=== PATIENT | female | born 1945 | race Caucasian/White ===

== ENCOUNTER → 2016-10-17 | Outpatient (CLI) | payer MEDICARE, OTHER ==
[~2016-10-17] MED LIST: ACLI400A2 IH; ALBU8.5H IH; ALEN70SO2 PO; CALC-15 PO; CARV3 PO; DILT120T PO; FLUT1DIS5 IH; FOLI1 PO; FURO40 PO; LEVO75TA4 PO; LOSA50TA37 PO; MVITFE PO; PANT20TA12 PO; SPIR25 PO; SULF1TAB42 PO; SYMB8060 IH; VICOT PO; WARF5TAB6 PO; [UNRECOGNIZED DRUG - CODE] OP
[2016-10-17 12:08] VITALS: BP 125/80
== END | disposition home or self-care (01) ==
LOC: HBOWC 11:36
PROVIDERS: ATTEND Emergency Medicine
DX: I87.2 Venous insufficiency (chronic) (peripheral) (principal); L97.321 Non-pressure chronic ulcer of left ankle limited to breakdown of skin; L89.892 Pressure ulcer of other site, stage 2

== ENCOUNTER → 2016-10-30 | Outpatient (CLI) | payer MEDICARE, OTHER ==
[~2016-10-30] MED LIST changes: +CLOTRIMAZOLE 1% 15 GM CREAM TP ONE; +TRIAMCINOLONE 0.1% 15 GM CREAM TP ONE
[2016-10-30 11:00] VITALS: BP 109/55
== END | disposition home or self-care (01) ==
LOC: HBOWC 10:34
PROVIDERS: ATTEND Emergency Medicine
DX: I87.2 Venous insufficiency (chronic) (peripheral) (principal); L97.321 Non-pressure chronic ulcer of left ankle limited to breakdown of skin; L89.892 Pressure ulcer of other site, stage 2

== ENCOUNTER → 2016-11-27 | Outpatient (CLI) | payer MEDICARE, OTHER ==
[~2016-11-27] MED LIST changes: -CLOTRIMAZOLE 1% 15 GM CREAM TP ONE; -TRIAMCINOLONE 0.1% 15 GM CREAM TP ONE
[2016-11-27 11:51] VITALS: BP 126/80
== END | disposition home or self-care (01) ==
LOC: HBOWC 11:08
PROVIDERS: ATTEND Emergency Medicine
DX: T81.89XD Other complications of procedures, not elsewhere classified, subsequent encounter (principal); L89.892 Pressure ulcer of other site, stage 2; I87.2 Venous insufficiency (chronic) (peripheral); K46.9 Unspecified abdominal hernia without obstruction or gangrene; Y83.8 Other surgical procedures as the cause of abnormal reaction of the patient, or of later complication, without mention of misadventure at the time of the procedure

== ENCOUNTER → 2016-12-11 | Outpatient (CLI) | payer MEDICARE, OTHER ==
[2016-12-11 11:41] VITALS: BP 111/66
== END | disposition home or self-care (01) ==
LOC: HBOWC 10:46
PROVIDERS: ATTEND Emergency Medicine
DX: I87.2 Venous insufficiency (chronic) (peripheral) (principal); L97.321 Non-pressure chronic ulcer of left ankle limited to breakdown of skin; L89.892 Pressure ulcer of other site, stage 2

== ENCOUNTER → 2017-01-21 | Outpatient (CLI) | payer MEDICARE, OTHER ==
[2017-01-21 11:21] VITALS: BP 110/62
== END | disposition home or self-care (01) ==
LOC: HBOWC 10:47
PROVIDERS: ATTEND Emergency Medicine
DX: L89.892 Pressure ulcer of other site, stage 2 (principal)

== ENCOUNTER → 2017-02-04 | Outpatient (CLI) | payer MEDICARE, OTHER ==
[2017-02-04 11:34] VITALS: BP 120/58
== END | disposition home or self-care (01) ==
LOC: HBOWC 10:22
PROVIDERS: ATTEND Emergency Medicine
DX: L89.892 Pressure ulcer of other site, stage 2 (principal); I87.8 Other specified disorders of veins; R60.9 Edema, unspecified
CPT/HCPCS: 97597

== ENCOUNTER → 2017-02-18 | Outpatient (CLI) | payer MEDICARE, OTHER ==
[2017-02-18 11:44] VITALS: BP 133/72
== END | disposition home or self-care (01) ==
LOC: HBOWC 10:59
PROVIDERS: ATTEND Emergency Medicine Undersea and Hyperbaric Medicine
DX: I87.2 Venous insufficiency (chronic) (peripheral) (principal); L97.321 Non-pressure chronic ulcer of left ankle limited to breakdown of skin; L89.892 Pressure ulcer of other site, stage 2
CPT/HCPCS: 87070; 87205; 97597

== ENCOUNTER → 2017-03-03 | Outpatient (CLI) | payer MEDICARE, OTHER ==
[~2017-03-03] MED LIST changes: +CEPH500 PO
[2017-03-03 12:31] VITALS: BP 106/54
== END | disposition home or self-care (01) ==
LOC: HBOWC 10:22
PROVIDERS: ATTEND Emergency Medicine
DX: I87.2 Venous insufficiency (chronic) (peripheral) (principal); L97.321 Non-pressure chronic ulcer of left ankle limited to breakdown of skin
CPT/HCPCS: 87070; 87205; 97597

== ENCOUNTER → 2017-03-17 | Outpatient (CLI) | payer MEDICARE, OTHER ==
[~2017-03-17] MED LIST changes: -SULF1TAB42 PO
[2017-03-17 12:07] VITALS: BP 121/67
== END | disposition home or self-care (01) ==
LOC: HBOWC 10:45
PROVIDERS: ATTEND Emergency Medicine Undersea and Hyperbaric Medicine
DX: I87.2 Venous insufficiency (chronic) (peripheral) (principal); L97.321 Non-pressure chronic ulcer of left ankle limited to breakdown of skin
CPT/HCPCS: 97597

== ENCOUNTER → 2017-04-01 | Outpatient (CLI) | payer MEDICARE, OTHER ==
[~2017-04-01] MED LIST changes: -CEPH500 PO; +TRIAMCINOLONE 0.1% 15 GM OINTMENT TP ONE
[2017-04-01 12:14] VITALS: BP 126/67
== END | disposition home or self-care (01) ==
LOC: HBOWC 11:01
PROVIDERS: ATTEND Emergency Medicine
DX: I87.2 Venous insufficiency (chronic) (peripheral) (principal); L97.321 Non-pressure chronic ulcer of left ankle limited to breakdown of skin
CPT/HCPCS: 97597

== ENCOUNTER → 2017-04-09 | Outpatient (CLI) | payer MEDICARE, OTHER ==
[~2017-04-09] MED LIST changes: +CEPH500 PO; +COLL30OI TP; -TRIAMCINOLONE 0.1% 15 GM OINTMENT TP ONE
[2017-04-09 11:52] VITALS: BP 123/70
== END | disposition home or self-care (01) ==
LOC: HBOWC 11:12
PROVIDERS: ATTEND Emergency Medicine
DX: I87.2 Venous insufficiency (chronic) (peripheral) (principal); L97.321 Non-pressure chronic ulcer of left ankle limited to breakdown of skin
CPT/HCPCS: 87070; 87205; 97597

== ENCOUNTER → 2017-04-16 | Outpatient (CLI) | payer MEDICARE, OTHER ==
[~2017-04-16] MED LIST changes: +LIDOCAINE HCL 2% 5 ML JELLY TP ONE
[2017-04-16 11:51] VITALS: BP 107/56
== END | disposition home or self-care (01) ==
LOC: HBOWC 10:44
PROVIDERS: ATTEND Emergency Medicine
DX: I87.2 Venous insufficiency (chronic) (peripheral) (principal); L97.321 Non-pressure chronic ulcer of left ankle limited to breakdown of skin
CPT/HCPCS: 97597

== ENCOUNTER → 2017-04-30 | Outpatient (CLI) | payer MEDICARE, OTHER ==
[~2017-04-30] MED LIST changes: -LIDOCAINE HCL 2% 5 ML JELLY TP ONE
[2017-04-30 11:05] VITALS: BP 121/75
== END | disposition home or self-care (01) ==
LOC: HBOWC 10:32
PROVIDERS: ATTEND Emergency Medicine
DX: I87.2 Venous insufficiency (chronic) (peripheral) (principal); L97.321 Non-pressure chronic ulcer of left ankle limited to breakdown of skin
CPT/HCPCS: 97597

== ENCOUNTER → 2017-07-29 | Outpatient (CLI) | payer OTHER ==
[~2017-07-29] MED LIST changes: -ALBU8.5H IH; +ALBU8.5H8 IH
== END | disposition home or self-care (01) ==
LOC: RADPV 10:15
PROVIDERS: ATTEND Internal Medicine
DX: R13.10 Dysphagia, unspecified (principal)
CPT/HCPCS: 74230; 92611